=== PATIENT | male | born 1960 | race Caucasian/White ===

== ENCOUNTER 2021-08-23 15:16 | Outpatient (CLI) | payer BC, SELFPAY ==
--- NOTE | ~2021-08-23 | CT_ITS ---
EXAMINATION: CT lung screening DATE: 08/23/2021 15:35 INDICATION: History of tobacco abuse. TECHNIQUE: Computed tomography (CT) of the abdomen and pelvis was performed without intravenous contr ast. The dose-length product was 276.66 mGy-cm. Automated exposure control and iterative reconstructi on technique were employed. COMPARISON: No prior studies for comparison. FINDINGS: Heart size is normal. No thoracic lymphadenopathy. Mild atherosclerosis of the coronary art eries. No significant pleural or pericardial effusion. There is a calcified granuloma of the left upp er lobe. No focal airspace disease. No pneumothorax. No suspicious pulmonary nodules or masses. No en dobronchial lesions. IMPRESSION: 1. Lung-RADS category 1: Negative. Continue annual screening with noncontrast low-dose chest CT in 12 months. Reviewed, dictated and finalized at location A. D ACCOUNT MANAGER IMPRESSION: 1. Lung-RADS category 1: Negative. Continue annual screening with noncontrast l ow-dose chest CT in 12 months.
== END 2021-08-23 15:17 | disposition home or self-care (01) ==
LOC: ANHIMG 15:21
PROVIDERS: PCP Family Medicine; Visit Provider Family Medicine
DX: Z12.2 Encounter for screening for malignant neoplasm of respiratory organs (principal); Z87.891 Personal history of nicotine dependence
CPT/HCPCS: 71271

== ENCOUNTER 2022-03-28 01:44 | Day surgery (SDC) | payer BC, SELFPAY ==
[2022-03-27 16:04] VITALS: BMI 29.9
[2022-03-28 07:56] VITALS: BP 136/87; PULSE 60; RESP 14; TEMP 36.4; O2SAT 100
--- NOTE | 2022-03-28 09:28 | WPDHPUPDATE1 ---
History and Physical Update Update Date/Time: 03/28/22 09:28 History and Physical has been reviewed, including an updated exam of the patient. There are NO changes in the patient's condition. Risks, benefits, and alternatives have been discussed and questions answered. Patient agrees to proceed with procedure.
--- NOTE | 2022-03-28 09:29 | W.PM.PROC2 ---
Procedure Note - Detailed Date of Procedure 03/28/22 Pre-op Diagnosis young of loop recorder end of service 03/28/2022 Post-op Diagnosis Same Procedure Performed extraction of loop recorder Surgeon Jerome Ulrich MD Director Of Provider Relations miller ramírez Anesthesia Local Indications end of battery life Findings loop recorder extracted Description of Procedure after informed consent patient was brought to the dental laboratory technician table. Anterior part of the chest was draped and prepped in the usual manner. 1% lidocaine infiltrated the skin and the 1 cm incision was done over the loop recorder. subsequently we used scissors to cut through the subcutaneous tissue and then extracted the loop recorder. Manual pressure applied to the for about 3 minutes. Wound was closed using glue. Implants none Drains No Packing No Pathology None sent Complications No immediate complications Condition Stable Disposition Same day
[2022-03-28 09:48] VITALS: BP 138/81; RESP 14; TEMP 36.6; O2SAT 100
== END 2022-03-28 10:00 | disposition home or self-care (01) ==
PROVIDERS: PCP Family Medicine; Visit Provider Internal Medicine Cardiovascular Disease
PROC: (CPT 33286; principal; 2022-03-28 09:00)
DX: Z45.09 Encounter for adjustment and management of other cardiac device (principal)
CPT/HCPCS: 33286; J0690; J7040

== ENCOUNTER 2023-03-17 09:09 | Outpatient (CLI) | payer OTHER, SELFPAY ==
--- NOTE | ~2023-03-17 | CT_ITS ---
EXAMINATION: CT lung screening DATE: 03/17/2023 09:32 INDICATION: Personal history of nicotine dependence, prior smoker with 45 pack year history TECHNIQUE: Computed tomography (CT) of the chest was performed without intravenous contrast. The dose -length product (DLP) was 215.14 mGy-cm. Automated exposure control and iterative reconstruction tech [employer] were employed. COMPARISON: 08/23/2021 FINDINGS: There is mild emphysema. A calcified nodule of the left upper lobe is consistent with old g ranulomatous disease. The lungs are free of acute opacities. No pleural effusion or pneumothorax. No pathologically enlarged thoracic lymph nodes are identified. The heart size is normal. Calcified collin nary artery atherosclerosis is noted. There is mild thoracic spondylosis. IMPRESSION: 1. Lung-RADS category 1: Negative. Continue annual screening with noncontrast low-dose chest CT in 12 months. Reviewed, dictated and finalized at location B. IMPRESSION: 1. Lung-RADS category 1: Negative. Continue annual screening with noncontrast l ow-dose chest CT in 12 months.
== END 2023-03-17 09:10 | disposition home or self-care (01) ==
PROVIDERS: PCP Family Medicine; Visit Provider Family Medicine
DX: Z12.2 Encounter for screening for malignant neoplasm of respiratory organs (principal); Z87.891 Personal history of nicotine dependence
CPT/HCPCS: 71271

== ENCOUNTER 2023-12-06 18:10 | Emergency (ER) | payer OTHER, SELFPAY ==
[2023-12-06 18:22] VITALS: BP 129/70; PULSE 82; RESP 18; TEMP 36.8; O2SAT 99
--- NOTE | 2023-12-06 18:34 | ED.EYEPROB ---
HPI - Eye Problem General Chief complaint: Eye Problems Stated complaint: Right Eye Irritation Time Seen by Provider: 12/06/23 18:34 Source: patient Mode of arrival: ambulatory Limitations: no limitations History of Present Illness HPI Narrative: 63-year-old male presented for complaint mild right eye pain. Onset yesterday. The pain is described as pulling an eyelash. Endorses mild redness and swelling to the lower lid. States he had skin tags removed from the right lower lid several years ago. Denies vision changes, fb sensation, drainage, headache, eye pain, dizziness, n/v/d/f/c. Denies recent illness. chief complaint: eye pain Related Data Home Medications Medication Instructions Recorded Confirmed aspirin 81 mg tablet,delayed 81 mg PO DAILY 08/13/21 12/06/23 release Adults Multivitamin 1 tablet PO DAILY 03/27/22 12/06/23 amlodipine 2.5 mg tablet 2.5 mg PO DAILY 12/06/23 12/06/23 Allergies Allergy/AdvReac Type Severity Reaction Status Date / Time No Known Allergies Allergy Verified 12/06/23 18:19 Review of Systems Review of Systems: CONSTITUTIONAL: Denies body aches, fever, chills EYES:Endorses swelling, redness and pain to right lower eyelid; denies FB sensation, photophobia, visual changes ENT: Denies rhinorrhea, congestion, sore throat, or otalgia. CARDIOVASCULAR: Denies chest pain, palpitations RESPIRATORY: Denies cough or dyspnea. SKIN: Denies rash, itching, or wounds. NEUROLOGIC: Denies headache, numbness, tingling, or weakness. All systems reviewed & are unremarkable except as noted in HPI and below PMFSH Past Medical History Medical History HLD (hyperlipidemia) Hypertension Kidney stones Myocardial bridge Surgical History Surgical History History of appendectomy Family History Family History Daughter Type I diabetes mellitus Social History Social History Smoking status: Former smoker Tobacco type: cigarettes Second hand tobacco smoke exposure: No Smoking end date: 03/27/18 Alcohol intake: former Substance use: never Substance use type: does not use Living arrangements: with family Occupation/Education: occupation Gender identity (if verbalized by the patient): Male Sexual Orientation (if Verbalized by the Patient): Straight or Heterosexual Spiritual care concerns: No Comments At time of signature, I have reviewed and agree with nursing past medical, surgical, social and family history unless otherwise noted. Please see nursing chart for further information. There is no relevant family history pertinent to the presenting complaint Exam Narrative: GENERAL: Well-appearing HEAD: Normocephalic, atraumatic. EYES: Mild right lower eye lid swelling and redness, internal hordeolum noted at 8o'clock position. External cluster of firm skin colored nodules approx 0.5cm diameter, nontender. PERRLA, EOMI. Lid eversion shows no FB. No conjunctival injection. ENT: Mucous membranes pink and moist. No rhinorrhea. TMs normal bilaterally. Throat normal. Uvula midline. SKIN: Warm, dry, no rash. Normal skin turgor. NEURO: No focal deficits. Alert and oriented x3 PSYCH: Normal affect. Eyes: Eyes/upper lids images: 1. area of clustered lesions and internal hordeolum Course Course Emergency Course: Patient is aware of diagnosis, understands and agrees to treatment plan. Anticipatory guidance given. Patient agrees to follow-up as directed and is aware of reasons to seek care at the emergency department. Portions of this record may have been created with voice recognition software Level of Care: Express Care Visit Vital Signs Vital signs: Vital Signs Temperature 98.3 F 12/06/23 18:22 Pulse Rate 82 12/06/23 18:
== END 2023-12-06 19:00 | disposition home or self-care (01) ==
PROVIDERS: Emergency Provider Nurse Practitioner Family; PCP Family Medicine
DX: H00.022 Hordeolum internum right lower eyelid (principal); Z87.891 Personal history of nicotine dependence; E78.5 Hyperlipidemia, unspecified; I10 Essential (primary) hypertension
CPT/HCPCS: 99213; G0463

== ENCOUNTER 2024-08-13 16:03 | Outpatient (CLI) | payer OTHER, SELFPAY ==
--- NOTE | ~2024-08-13 | CT_ITS ---
CT Scan of the Chest without Contrast: Clinical Indication: Lung cancer screening, nicotine dependence Technique: Contiguous sections were acquired throughout the chest without intravenous contrast. Dose reduction technique was used on this scan by utilizing automated exposure control and iterative recon struction technique. The dose-length product (DLP) was 316.80 mGy-cm. COMPARISON: 03/17/2023 Findings: There is no evidence of any significant mediastinal, hilar or axillary lymphadenopathy. Coronary kelin ry calcifications are present. There is no evidence of pleural or pericardial effusion. The lungs are clear. No pulmonary nodules or infiltrates are noted. Images through the upper abdomen reveal small bilateral nonobstructing renal stones. Impression: Lung RADS 1: Negative. 12 month follow-up screening CT advised. Reviewed, dictated and finalized at location . N SERVICE SPECIALIST Impression: Lung RADS 1: Negative. 12 month follow-up screening CT advised.
== END 2024-08-13 16:04 | disposition home or self-care (01) ==
PROVIDERS: PCP Family Medicine; Visit Provider Physician Assistant
DX: Z12.2 Encounter for screening for malignant neoplasm of respiratory organs (principal); Z87.891 Personal history of nicotine dependence
CPT/HCPCS: 71271